=== PATIENT | male | born 1955 | race Caucasian/White ===

== ENCOUNTER → 2016-11-27 | Outpatient (CLI) | payer BC ==
[~2016-11-27] MED LIST: PERCOCET 5/321 UDTAB PO; PHENERGAN 25 TA25 MG PO
== END ==
LOC: MC.RAD 12:56
DX: N62 Hypertrophy of breast (principal)

== ENCOUNTER 2023-10-23 09:59 | Emergency (ER) | payer BC ==
[~2023-10-23] VITALS: Ht 175.3 cm; Wt 109.1 kg
[2023-10-23 10:07] VITALS: BP 151/88; TEMP 98.1
[2023-10-23 11:19] VITALS: PULSE 78
== END 2023-10-23 11:19 | disposition home or self-care (01) ==
LOC: COL.ER 09:59
DX: S76.111A Strain of right quadriceps muscle, fascia and tendon, initial encounter (principal); F41.9 Anxiety disorder, unspecified; Z79.82 Long term (current) use of aspirin; Z79.899 Other long term (current) drug therapy; W01.0XXA Fall on same level from slipping, tripping and stumbling without subsequent striking against object, initial encounter
CPT/HCPCS: L1846